=== PATIENT | female | born 1950 | race Caucasian/White ===

== ENCOUNTER 2019-12-20 15:55 | Emergency (ER) | payer MEDICARE, OTHER ==
[~2019-12-20] VITALS: Ht 170.2 cm; Wt 74.2 kg
--- NOTE | 2019-12-20 16:11 | NUR ---
patient arrives with to er with vaginal bleeding feliz red blood that began today at 1 pm. she reports steady continuous heavy flow since then. patient reports no light headedness, and no abdominal pain. reports no pain. no nausea, and no vomiting.
--- NOTE | 2019-12-20 17:06 | NUR ---
got patient on ob bed and set up for pelvic exam
[2019-12-20 17:09] LABS: BASOPHILS # (AUTO) 0.07 x10^3/uL (0-0.1); BASOPHILS % (AUTO) 1 % (0-1); EOSINOPHILS # (AUTO) 0.19 x10^3/uL (0-0.4); EOSINOPHILS % (AUTO) 3 % (1-7); LYMPHOCYTES # (AUTO) 1.14 x10^3/uL (1-3.4); LYMPHOCYTES % (AUTO) 19 % (22-44); MD NO; MEAN CORPUSCULAR HEMOGLOBIN 31.5 pg (27.0-34.8); MEAN CORPUSCULAR HGB CONC 33.4 g/dL (32.4-35.8); MEAN CORPUSCULAR VOLUME 94.4 fL (80-100); MEAN PLATELET VOLUME 7.6 fL (7.4-10.4); MONOCYTES # (AUTO) 0.37 x10^3/uL (0.2-0.8); MONOCYTES % (AUTO) 6 % (2-9); NEUTROPHILS # (AUTO) 4.22 x10^3/uL (1.8-6.8); NEUTROPHILS % (AUTO) 70 % (42-75); PLATELET COUNT 296 x10^3/uL (130-400); RED BLOOD COUNT 4.25 x10^6/uL (3.82-5.3); RED CELL DISTRIBUTION WIDTH 13.9 % (9.6-15.2)
--- NOTE | 2019-12-20 18:24 | NUR ---
patient awaiting transvaginal ultrasound
--- NOTE | 2019-12-20 18:37 | NUR ---
stand by assist pelvic exam with duncan and no complications
--- NOTE | 2019-12-20 18:53 | NUR ---
REPORT RECEIVED FROM [facility]. PT RESTING ON GURNEY WITH X2 RAILS RAISED, MONITORING IN PLACED, CALL LIGHT WITHIN REACH. FAMILY AT FOR SUPPORT.
[2019-12-20 19:03] VITALS: BP 127/89
== END 2019-12-20 19:18 | disposition home or self-care (01) ==
LOC: ED 19:00
DX: N95.0 Postmenopausal bleeding (principal); D25.9 Leiomyoma of uterus, unspecified
CPT/HCPCS: 36415; 76830; 85025; 99284

== ENCOUNTER 2020-01-19 04:15 | Emergency (ER) | payer MEDICARE ==
[~2020-01-19] VITALS: Ht 170.2 cm; Wt 73.2 kg
[2020-01-19] MEDS ORDERED: SODIUM CHLORIDE FLUSH 10ML SYR IVF ONE (05:00)
[2020-01-19] MEDS ORDERED: SODIUM CHLORIDE 0.9% 1,000ML IVBOLUS ONE (05:00)
--- NOTE | 2020-01-19 05:40 | NUR ---
Pt reports vaginal bleeding for a few months. Pt states she was not able to go to her appointment for a procedure r/t her vaginal bleeding d/t the public health concerns. Pt reports her current episode of bleeding started this morning. Pt attached to all monitors and provided warm blankets. call light within reach and instructed on its use. bed rails up x 2
[2020-01-19 05:42] LABS: BASOPHILS # (AUTO) 0.04 x10^3/uL (0-0.1); BASOPHILS % (AUTO) 1 % (0-1); EOSINOPHILS # (AUTO) 0.05 x10^3/uL (0-0.4); EOSINOPHILS % (AUTO) 1 % (1-7); LYMPHOCYTES # (AUTO) 0.76 x10^3/uL (1-3.4); LYMPHOCYTES % (AUTO) 12 % (22-44); MD NO; MEAN CORPUSCULAR HEMOGLOBIN 31.8 pg (27.0-34.8); MEAN CORPUSCULAR HGB CONC 32.9 g/dL (32.4-35.8); MEAN CORPUSCULAR VOLUME 96.5 fL (80-100); MONOCYTES # (AUTO) 0.29 x10^3/uL (0.2-0.8); MONOCYTES % (AUTO) 5 % (2-9); NEUTROPHILS % (AUTO) 82 % (42-75); PLATELET COUNT 288 x10^3/uL (130-400); RED BLOOD COUNT 2.64 x10^6/uL (3.82-5.3); RED CELL DISTRIBUTION WIDTH 15.3 % (9.6-15.2)
[2020-01-19 05:49] LABS: ALANINE AMINOTRANSFERASE 23 U/L (12-78); ANION GAP 7 mmol/L (5-15); CALCIUM 8.2 mg/dL (8.5-10.1); CHLORIDE 110 mmol/L (98-107)
--- NOTE | 2020-01-19 05:50 | NUR ---
MIGUEL ÁNGEL LOVELL IN TO DO PELVIC EXAM AND I CHAPERONED
[2020-01-19 05:52] LABS: ALKALINE PHOSPHATASE 46 U/L (45-117); BILIRUBIN,TOTAL 0.6 mg/dL (0.2-1.0); CREATININE 0.72 mg/dL (0.55-1.02); TOTAL PROTEIN 6.2 g/dL (6.4-8.2)
[2020-01-19 06:02] VITALS: BP 102/65
--- NOTE | 2020-01-19 06:41 | NUR ---
pt ambulatory to the bathroom with a steady gait. pt states she wants to be discharged and does not want to be admitted to the hosptial. er law informed.
--- NOTE | 2020-01-19 06:56 | NUR ---
pt given strict instructions on when to return to ed. pt verbalized understanding and given written instructions also.
[2020-01-24] MEDS ORDERED: FERR325T18 PO (15:06)
== END 2020-01-19 06:57 | disposition home or self-care (01) ==
LOC: ED 04:52
DX: N93.8 Other specified abnormal uterine and vaginal bleeding (principal); I49.3 Ventricular premature depolarization
CPT/HCPCS: 36415; 80053; 85025; 93005; 99284; J7030

== ENCOUNTER 2020-02-11 12:09 | Outpatient (CLI) | payer MEDICARE ==
[~2020-02-11 12:09] MED LIST: FERR325T18 PO
== END 2020-02-11 23:59 | disposition home or self-care (01) ==
LOC: PETCFH 12:09
PROVIDERS: ATTEND Specialist
DX: C53.9 Malignant neoplasm of cervix uteri, unspecified (principal); N95.0 Postmenopausal bleeding; R19.00 Intra-abdominal and pelvic swelling, mass and lump, unspecified site; J43.9 Emphysema, unspecified; R16.0 Hepatomegaly, not elsewhere classified; K57.30 Diverticulosis of large intestine without perforation or abscess without bleeding
CPT/HCPCS: 78815; A9552

== ENCOUNTER 2020-02-21 07:38 | Outpatient (CLI) | payer MEDICARE ==
[2020-03-04] MEDS ORDERED: MV-M1TAB19 PO (10:28)
[2020-03-04] MEDS ORDERED: ONDA8TAB9 PO (10:31)
[2020-03-04] MEDS ORDERED: DEXA4TAB66 PO (10:31)
== END 2020-02-21 23:59 | disposition home or self-care (01) ==
LOC: ROC 07:38
PROVIDERS: ATTEND Radiology Radiation Oncology
DX: C53.9 Malignant neoplasm of cervix uteri, unspecified (principal); K57.00 Diverticulitis of small intestine with perforation and abscess without bleeding; J43.9 Emphysema, unspecified; Z79.899 Other long term (current) drug therapy
CPT/HCPCS: 99214; G0463

== ENCOUNTER 2020-04-01 08:06 | Outpatient (CLI) | payer MEDICARE ==
[~2020-04-01 08:06] MED LIST changes: +DEXA4TAB66 PO; +MV-M1TAB19 PO; +ONDA8TAB9 PO
[2020-04-10] MEDS ORDERED: POTA20TA6 PO (14:40)
[2020-04-10] MEDS ORDERED: CALC200T3 PO (14:40)
[2020-04-10] MEDS ORDERED: LORA-247 PO (14:40)
== END 2020-04-01 23:59 | disposition home or self-care (01) ==
LOC: CFH 08:06 → EDSTATUS 08:30 → CFH 23:59
PROVIDERS: ATTEND Obstetrics & Gynecology
DX: I82.403 Acute embolism and thrombosis of unspecified deep veins of lower extremity, bilateral (principal); M71.21 Synovial cyst of popliteal space [Baker], right knee
CPT/HCPCS: 93970

== ENCOUNTER 2020-04-07 05:31 | Day surgery (SDC) | payer MEDICARE, MEDICAID ==
[~2020-04-07] VITALS: Ht 167.6 cm; Wt 66.6 kg
[2020-04-07] MEDS ORDERED: LACTATED RINGERS 1,000 ML IV SCH (06:27)
[2020-04-07] MEDS ORDERED: CEFOTETAN PMX 2GM/50ML 50 ML IV ONE (06:30)
[2020-04-07] MEDS ORDERED: CHLORHEXIDINE 15 ML UDC MM ONE (06:30)
[2020-04-07] MEDS ORDERED: FENTANYL PF 250 MCG/5ML ONE (06:39)
[2020-04-07] MEDS ORDERED: ONDANSETRON 2MG/ML, 2ML ONE (06:40)
[2020-04-07] MEDS ORDERED: PROPOFOL 10 MG/ML, 20ML ONE (06:40)
[2020-04-07] MEDS ORDERED: CEFAZOLIN 1,000 MG ONE (06:40)
[2020-04-07] MEDS ORDERED: DEXAMETHASONE 4 MG/ML, 1ML ONE (06:40)
[2020-04-07] MEDS ORDERED: KETOROLAC 30 MG/1 ML ONE (06:41)
[2020-04-07] MEDS ORDERED: BUPIVACAINE/PF-EPI 0.25% 1:200K ONE (06:49)
[2020-04-07 06:53] VITALS: BP 132/85
[2020-04-07 07:04] LABS: INTERNATIONAL NORMALIZED RATIO 0.99 (0.93-1.1); PROTHROMBIN TIME 10.5 Seconds (9.6-11.5)
[2020-04-07] MEDS ORDERED: MEPERIDINE/PF 25MG/0.5ML IVPush PRN (07:30)
[2020-04-07] MEDS ORDERED: LABETALOL 5MG/ML, 20ML IV PRN (07:30)
[2020-04-07] MEDS ORDERED: morphine SULFATE 10 MG/ML, 1ML IVPush PRN (07:30)
[2020-04-07] MEDS ORDERED: HYDROmorphone 1 MG/ML, 1ML INJ IVPush PRN (07:30)
[2020-04-07] MEDS ORDERED: OXYcodone 5 MG/5 ML ORAL.SOL UDC PO PRN (07:30)
[2020-04-07] MEDS ORDERED: ACETAMINOPHEN 325 MG TABLET PO PRN (07:30)
[2020-04-07] MEDS ORDERED: FENTANYL PF 100 MCG/2ML IV PRN (07:30)
[2020-04-07] MEDS ORDERED: HALOPERIDOL 5 MG/ML IV PRN (07:30)
[2020-04-07] MEDS ORDERED: hydrALAzine 20 MG/ML, 1ML IV PRN (07:30)
[2020-04-07] MEDS ORDERED: PROMETHAZINE 25 MG/ML, 1ML IVPush PRN (07:30)
[2020-04-07] MEDS ORDERED: PHENYLEPHRINE 10 MG/ML ONE (07:37)
[2020-04-07] MEDS ORDERED: PROMETHAZINE 25 MG/ML, 1ML ONE (08:43)
== END 2020-04-07 11:20 | disposition home or self-care (01) ==
LOC: OUT 05:31
PROVIDERS: ATTEND Obstetrics & Gynecology
DX: C53.9 Malignant neoplasm of cervix uteri, unspecified (principal); Z11.59 Encounter for screening for other viral diseases; Z79.01 Long term (current) use of anticoagulants; Z79.899 Other long term (current) drug therapy; Z87.891 Personal history of nicotine dependence; Z98.51 Tubal ligation status; Z98.890 Other specified postprocedural states
CPT/HCPCS: 36415; 57155; 85610; 85730; J1100; J1885; J2370; J2405; J2550; J2704; J3010; J3490; J7120; Q3001; U0001; J0690

== ENCOUNTER 2020-04-18 09:02 | Emergency (ER) | payer MEDICARE, MEDICAID ==
[~2020-04-18] VITALS: Ht 167.6 cm; Wt 67.0 kg
[~2020-04-18 09:02] MED LIST changes: +CALC200T3 PO; +LORA-247 PO; +POTA20TA6 PO
--- NOTE | 2020-04-18 09:32 | NUR ---
PT WITH C/O OF INCREASED WEAKNESS THIS AM, PT WAS SUPPOSED TO GO TO RADIATION APPOINTMENT AND WAS UNABLE TO STAND. PT WITH WEAKNESS FOR WEEKS, PT BEING TREATED FOR CERVICAL CA, PT FINISHED CHEMO 2-3 WEEKS AGO. VSS. ERPROVIDER IN TO EVAL PT, AWAITING ORDERS AT THIS TIME
--- NOTE | 2020-04-18 10:15 | NUR ---
Note hany in ED - 04/18/20 at 1047 by CHINO MULTIPLE ATTEMPTS FOR SECOND SET OF BC DRAWN, AND 10A FOR HEPARIN GTT. WILL NOTIFY ADMITTING PROVIDER.
[2020-04-18 10:19] LABS: MEAN CORPUSCULAR HEMOGLOBIN 27.6 pg (27.0-34.8); MEAN CORPUSCULAR HGB CONC 32.6 g/dL (32.4-35.8); MEAN CORPUSCULAR VOLUME 84.5 fL (80-100); PLATELET COUNT 267 x10^3/uL (130-400); RED BLOOD COUNT 3.51 x10^6/uL (3.82-5.3); RED CELL DISTRIBUTION WIDTH 18.7 % (9.6-15.2)
[2020-04-18 10:26] LABS: ANION GAP 10 mmol/L (5-15); CALCIUM 9.3 mg/dL (8.5-10.1); CHLORIDE 108 mmol/L (98-107)
[2020-04-18 10:29] LABS: ALANINE AMINOTRANSFERASE 23 U/L (12-78); ALKALINE PHOSPHATASE 56 U/L (45-117); BILIRUBIN,TOTAL 0.2 mg/dL (0.2-1.0); CREATININE 1.48 mg/dL (0.55-1.02); TOTAL PROTEIN 7.3 g/dL (6.4-8.2)
[2020-04-18 10:48] LABS: MD YES
--- NOTE | 2020-04-18 10:49 | NUR ---
STRAIGHT CATH PERFORMED, PT TOLERATED WELL, SAMPLE TAKEN TO LAB
[2020-04-18 10:56] LABS: BAND#(MANUAL) 0.17 x10^3/uL; BANDS%(MANUAL) 13 % (0-7); LYMPH#(MANUAL) 0.18 x10^3/uL (1-3.4); LYMPHS% (MANUAL) 14 % (22-44); METAMYELOCYTES# (MANUAL) 0.08 x10^3/uL (0-0); METAMYELOCYTES% (MANUAL) 6 % (0-1); MONOS#(MANUAL) 0.13 x10^3/uL (0.3-2.7); MONOS% (MANUAL) 10 % (2-9); MYELOCYTES# (MANUAL) 0.04 x10^3/uL (0-0); MYELOCYTES% (MANUAL) 3 % (0-0); REACTIVE LYMPHS # (MANUAL) 0.01 x10^3/uL (0-0); REACTIVE LYMPHS % (MANUAL) 1 % (0-0); SEG#(MANUAL) 0.62 x10^3/uL (1.8-6.8); SEGS% (MANUAL) 48 % (42-75)
[2020-04-18 10:57] LABS: OTHER CELLS # (MANUAL) 0.07 x10^3/uL (0-0)
[2020-04-18 10:57] LABS: MICROSCOPIC NOT IND
[2020-04-18 10:58] LABS: <PLATELET ESTIMATE> ADEQUATE; ANISOCYTOSIS 1+; OVALOCYTES 1+
[2020-04-18 11:00] LABS: OTHER CELLS % (MANUAL) 5 % (0-0)
[2020-04-18 11:01] VITALS: BP 111/78
--- NOTE | 2020-04-18 11:49 | NUR ---
PT AMBULATED IN RM PER TEXTBOOK ASSOCIATE HELP. PT ABLE TO AMBULATE STEADY FOR SHORT DISTANCE, TRISTAN UPDATED, RECOMMEND AT HOME WALKER
--- NOTE | 2020-04-18 12:51 | NUR ---
TASK RN, FIRST CONTACT WITH PT: Patient given discharge instructions and they have confirmed that they understand the instructions. Patient pushed in wheelchair by EDRN to d/c desk. Pt left with d/c paperwork, taxi voucher, and all personal belongings. NADN. No other needs requested.
[2020-04-19 11:22] LABS: <PLT MORPHOLOGY> NORMAL PLT MORPH
== END 2020-04-18 12:53 | disposition home or self-care (01) ==
LOC: ED 09:39
DX: R53.1 Weakness (principal); R11.0 Nausea; R53.83 Other fatigue; R94.31 Abnormal electrocardiogram [ECG] [EKG]; Z85.41 Personal history of malignant neoplasm of cervix uteri
CPT/HCPCS: 36415; 80053; 81003; 85025; 93005; 99284

== ENCOUNTER 2020-04-25 10:25 | Observation (INO) | payer MEDICARE, MEDICAID ==
[~2020-04-25] VITALS: Ht 162.6 cm; Wt 64.0 kg
[2020-04-25] MEDS ORDERED: CHLORHEXIDINE 15 ML UDC ONE (10:50)
[2020-04-25 10:52] VITALS: BP 103/72
[2020-04-25] MEDS ORDERED: MV-M1TAB19 PEG (11:42)
[2020-04-25] MEDS ORDERED: LACTATED RINGERS 1,000 ML IV SCH (11:43)
[2020-04-25 12:12] LABS: MEAN CORPUSCULAR HEMOGLOBIN 27.6 pg (27.0-34.8); MEAN CORPUSCULAR HGB CONC 32.5 g/dL (32.4-35.8); MEAN CORPUSCULAR VOLUME 84.9 fL (80-100); MEAN PLATELET VOLUME 6.2 fL (7.4-10.4); PLATELET COUNT 563 x10^3/uL (130-400); RED CELL DISTRIBUTION WIDTH 19.8 % (9.6-15.2)
[2020-04-25 12:16] LABS: INTERNATIONAL NORMALIZED RATIO 1.07 (0.93-1.1); PROTHROMBIN TIME 11.3 Seconds (9.6-11.5)
[2020-04-25] MEDS ORDERED: [UNRECOGNIZED DRUG - OTHER] PO (12:17)
[2020-04-25] MEDS ORDERED: LORATADIN PO (12:17)
[2020-04-25] MEDS ORDERED: CALC200T3 PO (12:17)
[2020-04-25] MEDS ORDERED: CEFOTETAN PMX 2GM/50ML 50 ML ONE (12:25)
[2020-04-25] MEDS ORDERED: CEFOTETAN PMX 2GM/50ML 50 ML IV ONE (12:30)
[2020-04-25 12:32] LABS: MD YES
[2020-04-25 12:34] LABS: BAND#(MANUAL) 0.23 x10^3/uL; BANDS%(MANUAL) 5 % (0-7); BASOS#(MANUAL) 0.05 x10^3/uL (0-0.1); BASOS% (MANUAL) 1 % (0-1); LYMPH#(MANUAL) 0.46 x10^3/uL (1-3.4); LYMPHS% (MANUAL) 10 % (22-44); METAMYELOCYTES# (MANUAL) 0.18 x10^3/uL (0-0); METAMYELOCYTES% (MANUAL) 4 % (0-1); MONOS#(MANUAL) 0.51 x10^3/uL (0.3-2.7); MONOS% (MANUAL) 11 % (2-9); MYELOCYTES# (MANUAL) 0.05 x10^3/uL (0-0); MYELOCYTES% (MANUAL) 1 % (0-0); SEG#(MANUAL) 3.13 x10^3/uL (1.8-6.8); SEGS% (MANUAL) 68 % (42-75)
[2020-04-25 12:36] LABS: ANISOCYTOSIS 2+
[2020-04-25 12:39] LABS: <PLATELET ESTIMATE> INCREASED; <PLT MORPHOLOGY> NORMAL PLT MORPH; OVALOCYTES 1+
[2020-04-25] MEDS ORDERED: FENTANYL PF 250 MCG/5ML ONE (13:45)
[2020-04-25] MEDS ORDERED: MIDAZOLAM 1 MG/ML, 2ML ONE (13:45)
[2020-04-25] MEDS ORDERED: BUPIVACAINE/PF 0.25% ONE (14:12)
[2020-04-25] MEDS ORDERED: PHENYLEPHRINE 10 MG/ML ONE (15:44)
[2020-04-25] MEDS ORDERED: EPHEDRINE 50 MG/ML, 1ML ONE (15:44)
[2020-04-25] MEDS ORDERED: ONDANSETRON 2MG/ML, 2ML ONE (16:58)
[2020-04-25] MEDS ORDERED: CEFAZOLIN 1,000 MG ONE (16:58)
[2020-04-25] MEDS ORDERED: GLYCOPYRROLATE 0.2MG/1ML, 5ML ONE (16:58)
[2020-04-25] MEDS ORDERED: SUCCINYLCHOLINE 20 MG/ML, 10ML ONE (16:58)
[2020-04-25] MEDS ORDERED: ROCURONIUM 10MG/ML,5ML ONE (16:58)
[2020-04-25] MEDS ORDERED: NEOSTIGMINE 1 MG/ML, 10ML ONE (16:58)
[2020-04-25] MEDS ORDERED: PROPOFOL 10 MG/ML, 20ML ONE (16:58)
[2020-04-25] MEDS ORDERED: DEXAMETHASONE 4 MG/ML, 1ML ONE (16:58)
[2020-04-25 18:28] VITALS: BP 111/74
[2020-04-25] MEDS ORDERED: SODIUM CHLORIDE 0.9% 1,000ML IVBOLUS ONE (21:00)
[2020-04-25 21:14] VITALS: BP 111/72
[2020-04-26 00:53] VITALS: BP 97/64
[2020-04-26 04:28] VITALS: BP 115/81
[2020-04-26 07:20] VITALS: BP 100/65
[2020-04-26 10:32] VITALS: BP 92/64
== END 2020-04-26 10:55 | disposition home or self-care (01) ==
LOC: OR 10:25 → 4NE 18:07 → OUT 20:58 → 4NE 21:16 → DCLOUNGE 04-26 10:46
PROVIDERS: ADMIT Obstetrics & Gynecology; ATTEND Obstetrics & Gynecology
DX: Z03.818 Encounter for observation for suspected exposure to other biological agents ruled out (principal); C53.9 Malignant neoplasm of cervix uteri, unspecified; T85.618A Breakdown (mechanical) of other specified internal prosthetic devices, implants and grafts, initial encounter; D64.9 Anemia, unspecified; Z87.891 Personal history of nicotine dependence
CPT/HCPCS: 36415; 57155; 85025; 85610; 87635; G0378; J0330; J1100; J2250; J2370; J2405; J2704; J2710; J3010; J3490; J7030; J0690

== ENCOUNTER → 2020-06-05 | Outpatient (CLI) | payer MEDICARE, MEDICAID ==
[~2020-06-05] MED LIST changes: +LORATADIN PO; +MV-M1TAB19 PEG; +[UNRECOGNIZED DRUG - OTHER] PO
== END | disposition home or self-care (01) ==
LOC: PETCFH 07:22
PROVIDERS: ATTEND Obstetrics & Gynecology
DX: C53.9 Malignant neoplasm of cervix uteri, unspecified (principal); N95.0 Postmenopausal bleeding; R19.00 Intra-abdominal and pelvic swelling, mass and lump, unspecified site; E87.8 Other disorders of electrolyte and fluid balance, not elsewhere classified; I82.403 Acute embolism and thrombosis of unspecified deep veins of lower extremity, bilateral; E83.42 Hypomagnesemia
CPT/HCPCS: 78815; A9552

== ENCOUNTER → 2020-06-19 | Outpatient (CLI) | payer MEDICARE, MEDICAID ==
[2020-06-19 11:11] LABS: BASOPHILS # (AUTO) 0.03 x10^3/uL (0-0.1); BASOPHILS % (AUTO) 1 % (0-1); EOSINOPHILS # (AUTO) 0.07 x10^3/uL (0-0.4); EOSINOPHILS % (AUTO) 2 % (1-7); LYMPHOCYTES # (AUTO) 0.62 x10^3/uL (1-3.4); LYMPHOCYTES % (AUTO) 15 % (22-44); MD NO; MEAN CORPUSCULAR HEMOGLOBIN 32.4 pg (27.0-34.8); MEAN CORPUSCULAR HGB CONC 32.9 g/dL (32.4-35.8); MEAN CORPUSCULAR VOLUME 98.5 fL (80-100); MEAN PLATELET VOLUME 7.4 fL (7.4-10.4); MONOCYTES # (AUTO) 0.32 x10^3/uL (0.2-0.8); MONOCYTES % (AUTO) 8 % (2-9); NEUTROPHILS # (AUTO) 3.11 x10^3/uL (1.8-6.8); NEUTROPHILS % (AUTO) 75 % (42-75); PLATELET COUNT 249 x10^3/uL (130-400); RED CELL DISTRIBUTION WIDTH 15.5 % (9.6-15.2)
[2020-06-19 11:16] LABS: ALBUMIN 3.9 g/dL (3.4-5.0); ANION GAP 6 mmol/L (5-15); CALCIUM 9.9 mg/dL (8.5-10.1); CHLORIDE 109 mmol/L (98-107)
[2020-06-19 11:19] LABS: ALANINE AMINOTRANSFERASE 35 U/L (12-78); ALKALINE PHOSPHATASE 53 U/L (45-117); BILIRUBIN,TOTAL 0.5 mg/dL (0.2-1.0); CREATININE 0.88 mg/dL (0.55-1.02); TOTAL PROTEIN 7.1 g/dL (6.4-8.2)
[2020-06-19 11:47] LABS: INTERNATIONAL NORMALIZED RATIO 0.95 (0.93-1.1); PROTHROMBIN TIME 9.8 Seconds (9.6-11.5)
== END | disposition home or self-care (01) ==
LOC: STAR 08:13
PROVIDERS: ATTEND Obstetrics & Gynecology
DX: Z01.818 Encounter for other preprocedural examination (principal); Z20.828 Contact with and (suspected) exposure to other viral communicable diseases; C53.9 Malignant neoplasm of cervix uteri, unspecified
CPT/HCPCS: 36415; 80053; 85025; 85610; 85730; 87635; 93005

== ENCOUNTER → 2021-05-26 | Outpatient (CLI) | payer MEDICARE, MEDICAID ==
[~2021-05-26] MED LIST changes: -MV-M1TAB19 PEG; -MV-M1TAB19 PO; +MV-M1TAB74 PEG; +MV-M1TAB74 PO; +OMNIPAQUE 350 MG/ML, 100ML BOTTLE ONE
== END | disposition home or self-care (01) ==
LOC: CFH 08:02
PROVIDERS: ATTEND Obstetrics & Gynecology
DX: C53.9 Malignant neoplasm of cervix uteri, unspecified (principal); K57.90 Diverticulosis of intestine, part unspecified, without perforation or abscess without bleeding; Z51.11 Encounter for antineoplastic chemotherapy; R19.00 Intra-abdominal and pelvic swelling, mass and lump, unspecified site; N95.0 Postmenopausal bleeding; I82.403 Acute embolism and thrombosis of unspecified deep veins of lower extremity, bilateral; E87.8 Other disorders of electrolyte and fluid balance, not elsewhere classified; E83.42 Hypomagnesemia; N35.92 Unspecified urethral stricture, female; R33.9 Retention of urine, unspecified; R30.0 Dysuria; Z85.41 Personal history of malignant neoplasm of cervix uteri
CPT/HCPCS: 74177; Q9967